=== PATIENT | female | born 1970 | race Caucasian/White ===

== ENCOUNTER 2020-06-05 04:28 | Emergency (ER) | payer MEDICAID ==
[~2020-06-05] VITALS: Ht 162.6 cm; Wt 90.7 kg
[~2020-06-05 04:28] MED LIST: CELE200C PO; GABA-534 PO; HYDR4TAB4 PO; LISI1TAB29 PO
[2020-06-05 04:32] VITALS: BP 162/112
[2020-06-05] MEDS ORDERED: HYDROMORPHONE HCL 2 MG TABLET ONE (04:43)
[2020-06-05] MEDS ORDERED: HYDROMORPHONE HCL 2 MG TABLET PO PRN (05:00)
--- NOTE | 2020-06-05 05:06 | NUR ---
xray at bedside
--- NOTE | 2020-06-05 05:38 | NUR ---
AT BED SIDE
== END 2020-06-05 05:53 | disposition home or self-care (01) ==
LOC: ER 04:30
DX: S93.491A Sprain of other ligament of right ankle, initial encounter (principal); I10 Essential (primary) hypertension; E78.5 Hyperlipidemia, unspecified; Z98.890 Other specified postprocedural states; Z88.6 Allergy status to analgesic agent; Z88.8 Allergy status to other drugs, medicaments and biological substances; Z79.899 Other long term (current) drug therapy; X50.1XXA Overexertion from prolonged static or awkward postures, initial encounter; Y93.01 Activity, walking, marching and hiking; Y92.89 Other specified places as the place of occurrence of the external cause; Y99.8 Other external cause status
CPT/HCPCS: 73610-TC

== ENCOUNTER 2020-06-06 08:10 | Emergency (ER) | payer MEDICAID ==
[~2020-06-06] VITALS: Ht 162.6 cm; Wt 90.7 kg
[2020-06-06 08:19] VITALS: BP 164/103
[2020-06-06] MEDS ORDERED: HYDROMORPHONE HCL 2 MG TABLET ONE (08:27)
[2020-06-06] MEDS ORDERED: HYDROMORPHONE HCL 2 MG TABLET PO PRN (08:30)
--- NOTE | 2020-06-06 08:35 | NUR ---
PROVIDED W/ WALKING BOOT. DISCHARGE IN STABLE CONDITION.
== END 2020-06-06 08:36 | disposition home or self-care (01) ==
LOC: ER 08:17
DX: M25.571 Pain in right ankle and joints of right foot (principal); R22.41 Localized swelling, mass and lump, right lower limb; I10 Essential (primary) hypertension; E78.5 Hyperlipidemia, unspecified; Z98.890 Other specified postprocedural states; Z88.6 Allergy status to analgesic agent; Z88.8 Allergy status to other drugs, medicaments and biological substances; Z60.2 Problems related to living alone; Z79.899 Other long term (current) drug therapy